=== PATIENT | female | born 1955 | race Caucasian/White ===

== ENCOUNTER → 2016-04-29 | Outpatient (CLI) | payer OTHER ==
--- NOTE | 2016-04-29 17:16 | DX ---
Single frontal chest - April 29, 2016 Indication: Bibasilar rales. Comparison: November 09, 2015. Findings: Heart size is normal. The lungs are clear. There is no evidence of pleural effusion or cons olidation. Pulmonary vascularity remains within normal limits. Mild central airways disease is again noted. Impression: Mild airways disease.
== END ==
LOC: FIMAGING 16:27
PROVIDERS: ATTEND Family Medicine
DX: R09.89 Other specified symptoms and signs involving the circulatory and respiratory systems (principal); I21.4 Non-ST elevation (NSTEMI) myocardial infarction; N17.9 Acute kidney failure, unspecified; E11.40 Type 2 diabetes mellitus with diabetic neuropathy, unspecified; E11.59 Type 2 diabetes mellitus with other circulatory complications; I16.0 Hypertensive urgency

== ENCOUNTER → 2016-12-23 | Outpatient (CLI) | payer OTHER | LOC: FIMAGING 13:18 | PROVIDERS: ATTEND Family Medicine | DX: M54.9 Dorsalgia, unspecified (principal); N19 Unspecified kidney failure; R11.0 Nausea; R74.8 Abnormal levels of other serum enzymes ==